=== PATIENT | female | born 1940 | race Caucasian/White ===

== ENCOUNTER → 2021-01-09 09:43 | Outpatient (CLI) | payer MEDICARE, BC, SELFPAY ==
--- NOTE | 2021-01-09 09:52 | DI.NM.S_ITS ---
PROCEDURE: NM LUX PERF SPECT R&S PHARM Rest and pharmacological stress myocardial perfusion SPECT with gated imaging and ejection fraction RADIOPHARMACEUTICAL: 11.2 mCi Tc-99m tetrafosmin IV at rest and 25.8 mCi Tc-99m tetrafosmin IV at peak effect of pharmacological stress. [id number] was performed. INDICATIONS: Essential (primary) hypertension TECHNIQUE: Radiopharmaceutical was injected at peak stress test, and also at rest. SPECT images were obtained. SPECT myocardial perfusion images were displayed in short axis, horizontal long axis, and vertical long axis views. Gated images were reviewed using [employer] software. COMPARISON: None. CARDIAC STRESS: Treadmill stress was done but only 77% of maximum predicted heart rate reached. Study was switched to a pharmacologic stress test, which was performed under the supervision of an attending staff, using an infusion of lexiscan 0.4mg IV X1. Hemodynamic data: There is normal blood pressure and heart rate response to pharmacologic stress. Symptoms: The patient denied anginal chest pain. Aminophylline: none EKG: No diagnostic changes of ischemia; no ectopy. FINDINGS: Raw data: There is good myocardial uptake of radiotracer. No significant motion artifacts. Left ventricle function: Gated images demonstrate normal left ventricular wall thickening. No segmental wall motion abnormalities. No transient ischemic dilation; TID is 0.91 (normal less than 1.3). Left ventricle resting end diastolic volume is 136 mL. Left ventricle stress ejection fraction is 73%; normal range is above 45%. Myocardial perfusion: There is normal distribution of activity in the right and left ventricular myocardium. No fixed or reversible perfusion defects. IMPRESSION: Low risk, normal pharmaceutical stress test. 1) No perfusion evidence of ischemia or infarction. 2) Normal left ventricular size, wall motion, and systolic function (EF post stress 73%). 3) No angina during the study. 4) No ECG evidence of ischemia. 5) Good exercise tolerance (7.0 METs, ELISSA -30%). Only 77% of maximum predicted heart rate reached and, therefore, the study was switched to lexiscan. 6) No prior nuclear stress test available for comparison. Dictated by: Milli Garcia MD on 01/10/2021 at 9:22 Approved by: Milli Garcia MD on 01/10/2021 at 9:25
[2021-01-09 11:10] LABS: COVID19 -Nasal RAPID Negative (Negative)
--- NOTE | 2021-01-09 15:18 | PM.TREADMILL ---
Cardiac Stress Test Report Referral & Results Date Patient Seen: 01/09/21 Time Patient Seen: 15:18 Requesting provider: T[place] Indication: hypertension Rest ECG: sinus rhythm with PACs Procedure Note: Standard Gonzalo protocol, 5:44, 6.9 METS Very good exercise capacity, ELISSA -36% Normal hemodynamic response to exercise No chest pain or anginal symptoms Patient requested to stop due to fatigue. Target heart rate not achieved. No significant ST changes at peak exercise; occasional PACs Test changed to Lexiscan stress test After Lexiscan injection had minimal dyspnea, no chest discomfort No significant ST changes after Lexiscan stress test Impression: Equivocal exercise stress test Normal Lexiscan stress test MIBI images pending Please note: Actual ECG tracings can be found in the PACS system.
== END ==
PROVIDERS: Student in an Organized Health Care Education/Training Program; PCP Family Medicine; Referring Provider Family Medicine; Visit Provider Family Medicine
DX: I12.9 Hypertensive chronic kidney disease with stage 1 through stage 4 chronic kidney disease, or unspecified chronic kidney disease (principal); N18.31 Chronic kidney disease, stage 3a; R06.00 Dyspnea, unspecified; Z20.822 Contact with and (suspected) exposure to COVID-19
CPT/HCPCS: 78452; 87635; 93017; A9502; J2785

== ENCOUNTER 2024-03-16 11:46 | Outpatient (CLI) | payer MEDICARE, BC, SELFPAY ==
[2024-03-16] VITALS (8 sets, daily range): BP systolic 179–208; BP diastolic 74–91; PULSE 63–67; RESP 10–19; TEMP 36.8; O2SAT 97–100
--- NOTE | 2024-03-16 13:00 | DI.RAD.S_ITS ---
PROCEDURE: PAIN L/S TRANSFORAMINAL INJECT INDICATIONS: Right L4-5 transforaminal MIKEL COMPARISON: Outside Facility, RG, XR L-SPINE 4-6V, 06/01/2023, 14:03. FINDINGS: Fluoroscopic spot filming was performed to verify placement of spinal needle at the right L4-5 level, as labeled on the films. Appropriate location of the needle tip was confirmed by injection of iodinated contrast. IMPRESSION: Intraprocedural examination demonstrates appropriate needle positioning. Approved by: Timur Morel M.D. on 03/16/2024 at 15:33
[2024-03-16] MEDS: MIDAZOLAM 2 MG/2 ML VIAL IV (13:31)
[2024-03-16] MEDS: BUPIVACAINE 0.25% (PF) VIAL 2 ML INJ (13:35)
[2024-03-16] MEDS: iopamidoL 15 ML VIAL 3 ML INJ (13:35)
[2024-03-16] MEDS: BETAMETHASONE 30 MG/5 ML MDV 6 MG INJ (13:35)
[2024-03-16] MEDS: DEXAMETHASONE 10 MG/ML VIAL INJ (13:36)
--- NOTE | 2024-03-16 13:48 | P.PCN_ITS ---
Date/Time/Diagnoses Date of procedure: 03/16/24 Time of procedure: 13:48 Pre-procedure diagnosis: 1. FORAMINAL STENOSIS WITH LE SYMPTOMS Post-procedure diagnosis: same Procedure Notes Procedure: 1. FLUOROSCOPICALLY GUIDED CONTRAST CONTROLLED TRANSFORAMINAL EPIDURAL STEROID INJECTION - RIGHT L4/5 TFESI Indications: Maria Luisa is referred by Dr. Zapata for treatment of Foraminal Stenosis with Right LE Symptoms Physician: Harley Ornelas Total Fluoroscopy time (seconds): 12 Total sedation minutes: 12 Complications: none Procedure in detail & Post-procedure care: FINDINGS Foraminal Nerve Root Compression secondary to disc disease and facet hypertrophy DESCRIPTION OF PROCEDURE Following review of allergy and review of potential side effects and complications, including, but not necessarily limited to, infection, allergic reaction, local tissue breakdown, stroke, temporary or permanent nerve injury, paralysis, and possible , the patient indicated that the patient understood and agreed to proceed. An informed consent document was signed by the patient, witnessed by a nurse, and placed in the patient's chart. Additionally, other treatment options including medications, modalities, and physical therapy were reviewed with the patient. After review of previous anaesthesic history and IV conscious sedation the patient was deemed safe to proceed with today?s procedure with IV conscious sedation as ASA class II designation. Safety time-out was performed to confirm patient ID, procedure to be performed and site of procedure. IV sedation was accomplished with a combination of 2mg of Versed was administered by the RN after DO order, titrated to patient comfort during the course of the procedure while the patient remained responsive to all verbal commands In the prone position following sterile prep and drape of the lumbar region, the right L4/5 posterior neuroforamen was identified fluoroscopically. The skin was anesthetized via a 25-gauge 1.5-inch needle with 1% lidocaine solution. At this point, a 25-gauge 3.5-inch spinal needle was atraumatically introduced and advanced under fluoroscopic guidance through the posterior right L4/5 neuroforamen to approximately the anterior aspect of the canal. Depth was confirmed on lateral view. Following negative aspiration, injection of approximately 1.5cc of Isovue 200 under live fluoroscopy in the AP view c onfirmed excellent flow along the nerve root, into the epidural space without vascular or intrathecal uptake observed Radiological data, including multiple fluoroscopic views of the lumbosacral spi ne, reveal a spinal needle at the right L4/5 posterior neuroforamen. Subsequent views show flow of contrast material flowing superiorly and inferiorly along the nerve root confirming epidural flow. Subsequently, a test dose of 1.5 cc of 1% lidocaine solution was administered and patient was observed for two minutes for signs or symptoms of complications, including abdominal pain, shortness of breath, bilateral upper or lower extremity weakness, nausea and vomiting, prior to steroid injection. At this point, a total of 2cc or 10mg of dexamethasone and 6mg of betamethasone was injected without incident. The procedure tolerated the procedure well without signs or symptoms of complications prior to transfer to the recovery area continued monitoring without incident. The patient was then transferred to the recovery area where they were observed for an appropriate time after the injection. The patient reported a VAS score of 7 prior to the procedure and a post- procedure VAS of 0. POST OP INSTRUCTIONS The patient was provided a Pain Log to continue to record their response to the target-specific procedure prior to follow-up visit with their referring physician. Additionally, specific post-injection care instructions and a contact number to our office were provided if concerns arise regarding possible complications associated with the procedure are suspected.
== END 2024-03-16 14:01 | disposition home or self-care (01) ==
PROVIDERS: PCP Family Medicine; Referring Provider Physical Medicine & Rehabilitation; Visit Provider Physical Medicine & Rehabilitation
DX: M51.16 Intervertebral disc disorders with radiculopathy, lumbar region (principal); M48.061 Spinal stenosis, lumbar region without neurogenic claudication; M47.26 Other spondylosis with radiculopathy, lumbar region
CPT/HCPCS: 64483; 99152; J0702; J1100; J2250; J3490